=== PATIENT | female | born 1960 | race Caucasian/White ===

== ENCOUNTER → 2020-02-15 15:17 | Outpatient (BNVA) | payer OTHER, SELFPAY | PROVIDERS: Family Provider Nurse Practitioner; Visit Provider Nurse Practitioner | DX: Z12.31 Encounter for screening mammogram for malignant neoplasm of breast (principal); Z12.4 Encounter for screening for malignant neoplasm of cervix | CPT/HCPCS: 88175 ==

== ENCOUNTER → 2020-12-24 09:30 | Outpatient (BNVA) | payer SELFPAY | PROVIDERS: Family Provider Nurse Practitioner; Visit Provider Dermatology | DX: Z01.89 Encounter for other specified special examinations (principal); R20.2 Paresthesia of skin | CPT/HCPCS: 82607 ==

== ENCOUNTER 2021-05-12 08:59 | Outpatient (CLI) | payer OTHER, SELFPAY ==
--- NOTE | 2021-05-12 09:00 | MM_ITS ---
WS: [id number] BILATERAL SCREENING DIGITAL MAMMOGRAM WITH CAD HISTORY: Z12.31 - Encounter for screening mammogram for malignant neoplasm of breast COMPARISON: 01/23/2019 and 11/10/2017 Bilateral CC and MLO views submitted. Computer aided detection analyzed. Breast composition: The breasts are extremely dense, which lowers the sensitivity of mammography. No suspicious masses, microcalcifications or architectural distortion. Benign calcifications RIGHT breas [place]. MM/[place] [id number] IMPRESSION: BI-RADS: 2-Benign FOLLOW UP: 1 Year Follow-up
== END 2021-05-12 09:00 | disposition home or self-care (01) ==
LOC: RADSHAW 09:01
PROVIDERS: PCP Nurse Practitioner; Visit Provider Nurse Practitioner
DX: Z12.31 Encounter for screening mammogram for malignant neoplasm of breast (principal)
CPT/HCPCS: 77067

== ENCOUNTER → 2022-02-11 11:35 | Outpatient (BNVA) | payer OTHER, SELFPAY | PROVIDERS: PCP Nurse Practitioner; Visit Provider Nurse Practitioner | DX: N95.0 Postmenopausal bleeding (principal); R55 Syncope and collapse; Z12.4 Encounter for screening for malignant neoplasm of cervix; R13.10 Dysphagia, unspecified | CPT/HCPCS: 88175 ==

== ENCOUNTER 2022-02-26 07:24 | Outpatient (CLI) | payer OTHER, SELFPAY ==
--- NOTE | 2022-02-26 07:00 | USCV_ITS ---
Daniella Story Age: 61 Gender: F : 1960 Exam Date: 02/26/2022 07:39 Ordering Phys: Jose Miguel Thomas Technologist: CAMILLA Exam Location: [facility] [place] Indication: SYNCOPE Risk Factors: Previous Vascular Surgery: Right Brachial BP: / Left Brachial BP: / Right Left Velocity (cm/s) Spectral Plaque Velocity (cm/s) Spectral Plaque Syst/Diast Broadening Syst/Diast Broadening 119.10/27.60 Prox CCA 108.50/ 33.30 105.30/28.40 Mid CCA 127.30/ 41.00 87.10/ 23.20 Distal CCA 94.80 / 33.30 60.80/ 11.20 Prox ICA 88.00 / 12.80 69.10/ 30.80 Mid ICA 82.00 / 29.10 75.20/ 30.20 Distal ICA 60.80 / 19.80 76.00 ECA 108.50 0.63 ICA/CCA 0.69 Antegrade Vertebral Antegrade 43.50/ 14.00 cm/s 41.90/ 17.10 cm/s Tri Subclavian Tri 97.40 127.9 0 FINDINGS Comparison: none available. No significant elevation of systolic or diastolic velocities. Waveforms are normal. No significant amount of calcified plaque or intimal thickening identified. CONCLUSIONS Normal carotid doppler ultrasound. Dr. Olya Frances DO (Electronically Signed) Final Date: 26 Feb 2022 08:09 S
== END 2022-02-26 07:25 | disposition home or self-care (01) ==
LOC: RAD 07:24
PROVIDERS: PCP Nurse Practitioner; Visit Provider Nurse Practitioner
DX: R55 Syncope and collapse (principal)
CPT/HCPCS: 93880

== ENCOUNTER 2022-03-23 10:28 | Outpatient (CLI) | payer OTHER, SELFPAY ==
--- NOTE | 2022-03-23 10:45 | US_ITS ---
WS: [id number] TRANSABDOMINAL PELVIC AND TRANSVAGINAL PELVIC ULTRASOUND HISTORY: N95.0 - Postmenopausal bleeding COMPARISON: 04/24/2015 Uterus: 7.7 cm x 5.1 cm x 2.8 cm. Normal size anteverted uterus. Mildly heterogeneous myometrium but no fibroids are identified. Endometrium: 0.4 cm. Thin endometrium. Junctional zone is difficult to visualize. No mass is identifi ed. Right ovary: 2.1 cm x 1.9 cm x 1.2 cm. Small atrophic ovary as expected. No mass. Normal vascularity. Left ovary: 1.9 cm x 2.0 cm x 1.4 cm. Small atrophic ovary as expected. No mass. Normal vascularity. No free fluid. US/US pelvic with transvaginal IMPRESSION: 1. Thin endometrium. No mass identified. If postmenopausal bleeding persist re commend visualization with biopsy should be performed. 2. Heterogeneous uterus but no fibroid identified.
== END 2022-03-23 10:29 | disposition home or self-care (01) ==
PROVIDERS: PCP Nurse Practitioner; Visit Provider Nurse Practitioner
DX: N95.0 Postmenopausal bleeding (principal)
CPT/HCPCS: 76830; 76856

== ENCOUNTER 2022-03-31 08:31 | Outpatient (CLI) | payer OTHER, SELFPAY ==
--- NOTE | 2022-03-31 08:59 | FL_ITS ---
WS: [email or web address] FL barium swallow [id number] REASON FOR EXAM: DYSPHAGIA FLUOROSCOPY TIME: 2min [id number] # OF SPOT FILMS: 6 FINDINGS: The swallowing of barium was evaluated with the patient in the upright and SCOTT prone position. Examin ation was performed from the oropharynx through the gastroesophageal junction. There is mild impingement on the posterior cervical esophagus from anterior osteophytes C4-C5 and C5- C6. There is no stricture or evidence of a diverticulum in the region of the surgical clips in the ba se of the neck. (Lesion that was removed from the patient's neck was at the thoracic inlet right of m idline and was air filled and did not communicate with the esophagus.). Below the thoracic inlet there is moderate retention of barium in a nondilated esophagus. This was du e to loss of the normal peristaltic wave and mild tertiary contractions. With additional swallowing t he barium cleared from the esophagus. At the gastroesophageal junction there was no stricture and a very small sliding hiatal hernia with n o significant reflux. FL/FL barium swallow [id number] IMPRESSION: Esophageal dysmotility as above. No mechanical obstruction identified.
== END 2022-03-31 08:32 | disposition home or self-care (01) ==
PROVIDERS: PCP Nurse Practitioner; Visit Provider Specialist
DX: D15.2 Benign neoplasm of mediastinum (principal); R13.12 Dysphagia, oropharyngeal phase; R09.89 Other specified symptoms and signs involving the circulatory and respiratory systems
CPT/HCPCS: 74220

== ENCOUNTER 2022-04-14 12:09 | Outpatient (CLI) | payer OTHER, SELFPAY ==
--- NOTE | 2022-04-14 12:17 | CT_ITS ---
WS: [email or web address] CT CHEST TECHNIQUE: Contrast enhanced CT of the chest with coronal and sagittal reformatted images. CLINICAL INFORMATION: BENIGN NEOPLASM OF MEDIASTINUM COMPARISON: None. DLP: 472.[address] scans at [facility] use at least one of these dose optimization techniques: automated e xposure control; mA and/or kV adjustment per patient size (includes targeted exams where dose is matc hed to clinical indication); or iterative reconstruction. FINDINGS: Previously described RIGHT paraesophageal diverticulum has been ligated. No evidence of residual or r ecurrent diverticulum. Surgical clips in this area. Normal thyroid gland. Normal caliber thoracic aorta. No mediastinal or hilar lymphadenopathy. No axil paul lymphadenopathy. Adrenal glands are normal. Normal caliber upper abdominal aorta. Normal GE junc tion. Mild chronic emphysematous changes. No acute pulmonary infiltrates. No suspicious pulmonary parenchym al opacities. CT/CT chest w con* [id number] IMPRESSION: 1. Previously described paraesophageal diverticulum at the thoracic inlet has been surgically repaired compared to the prior examination. No evidence of resi dual or recurrent diverticulum. 2. Chest otherwise unremarkable.
--- NOTE | 2022-04-14 12:43 | CT_ITS ---
WS: [email or web address] CT NECK TECHNIQUE: Contrast-enhanced CT of the neck with coronal and sagittal reformatted images. CLINICAL INFORMATION: DYSPHAGIA, OROPHARYNGEAL PHASE COMPARISON: 2012 DLP: 191.[address] scans at [facility] use at least one of these dose optimization techniques: automated e xposure control; mA and/or kV adjustment per patient size (includes targeted exams where dose is matc hed to clinical indication); or iterative reconstruction. FINDINGS: Since the prior examination, there has been interval ligation of the previously described esophageal diverticulum. No evidence of residual or recurrent diverticulum today. Associated surgical clips in t his area. Parotid glands are normal. Submandibular glands are normal. Partially visualized intracranial content s are normal. Mild mucosal thickening RIGHT mastoid tip. Mastoid air cells are otherwise well aerated . Paranasal sinuses are well aerated. Normal posterior nasopharynx. Normal parapharyngeal fat. No evide nce of glottic or supraglottic mass. Subglottic airway is normal. Normal thyroid gland. Emphysematous changes in the lung apices. Beam hardening artifact at the tongue base due to dental artifact. Mild spondylitic changes cervical spine with disc space narrowing worse at C5-C6 and C6-C7. CT/CT neck w con* [id number] IMPRESSION: 1. Previously described esophageal diverticulum has been ligated since the cass or examination. No evidence of recurrent or residual diverticulum. Surgical cli ps in this area. 2. No evidence of supraglottic or glottic mass. Subglottic airway is patent. 3. No other significant changes compared to previous. 4. Normal salivary glands. 5. No cervical lymphadenopathy.
[2022-04-14] MEDS: iohexol 350 mg/mL 100 mL Btl IV ×2 (13:12→13:14)
[2022-04-14 15:39] LABS: Blood Urea Nitrogen 15 mg/dL (8-23); Glomerular Filtration Rate 85.4 mL/min (90-130)
== END 2022-04-14 12:10 | disposition home or self-care (01) ==
LOC: RAD 12:09
PROVIDERS: Otolaryngology; PCP Nurse Practitioner; Visit Provider Specialist
DX: D15.2 Benign neoplasm of mediastinum (principal)
CPT/HCPCS: 70491; 71260; 82565; 84520

== ENCOUNTER → 2022-06-30 09:00 | Outpatient (BNVA) | payer OTHER, SELFPAY | PROVIDERS: PCP Nurse Practitioner; Visit Provider Obstetrics & Gynecology | DX: N95.0 Postmenopausal bleeding (principal) | CPT/HCPCS: 88305 ==

== ENCOUNTER → 2022-09-15 12:47 | Outpatient (BNVA) | payer SELFPAY | PROVIDERS: PCP Nurse Practitioner; Visit Provider Dermatology | DX: Z01.89 Encounter for other specified special examinations (principal) ==

== ENCOUNTER 2023-03-29 13:16 | Outpatient (CLI) | payer OTHER, SELFPAY ==
--- NOTE | 2023-03-29 13:24 | MM_ITS ---
WS: [email or web address] VIEWS: MLO and CC views both breasts. 3D digital tomosynthesis is also included in this exam. Comparison made with prior exam of . Findings: There was no sign of mass, architectural distortion or suspicious calcification in either breast. Th e breasts are extremely dense which lowers the sensitivity of mammography MM/[place] [id number] Impression: BI-RADS: 2-Benign finding. FOLLOW-UP: 1 Year Follow-up This mammogram was also analyzed by the Computer Aided Detection System R2 Imag e [employer].
== END 2023-03-29 13:17 | disposition home or self-care (01) ==
PROVIDERS: PCP Nurse Practitioner; Visit Provider Nurse Practitioner
DX: Z12.31 Encounter for screening mammogram for malignant neoplasm of breast (principal)
CPT/HCPCS: 77063; 77067

== ENCOUNTER → 2023-11-26 12:36 | Outpatient (BNVA) | payer SELFPAY | PROVIDERS: PCP Nurse Practitioner; Visit Provider Nurse Practitioner | DX: Z13.6 Encounter for screening for cardiovascular disorders (principal) | CPT/HCPCS: 80061; 82947; 83036 ==

== ENCOUNTER 2024-04-18 11:00 | Outpatient (CLI) | payer OTHER, SELFPAY ==
--- NOTE | 2024-04-18 11:00 | MM_ITS ---
WS: [email or web address] Bilateral screening 3D tomosynthesis digital mammogram, 04/18/2024 Clinical Data: Z12.31 - Encounter for screening mammogram for malignant ... Comparison: 03/29/2023, 05/12/2021, 01/23/2019, 11/30/2017, 08/26/2016, 04/24/2015, 12/14/2013, 11/24/2012. , 04/16/2011, 03/10/2011, 08/13/2010, 07/24/2008. Findings: The breast parenchymal pattern shows extreme density. No spiculated masses or clustered calcification s are seen. There are no secondary signs of carcinoma. MM/[place] [id number] Impression: 1. Negative bilateral mammogram unchanged. 2. Recommend annual screening mammograms. BIRADS: 1-Negative FOLLOW UP: 1 Year Follow-up The CAD specifications checker was used.
== END 2024-04-18 11:04 | disposition home or self-care (01) ==
LOC: MOBLMAM 11:09
PROVIDERS: PCP Nurse Practitioner; Visit Provider Nurse Practitioner
DX: Z12.31 Encounter for screening mammogram for malignant neoplasm of breast (principal); R92.333 Mammographic heterogeneous density, bilateral breasts
CPT/HCPCS: 77063; 77067

== ENCOUNTER → 2025-03-07 16:52 | Outpatient (BNVA) | payer OTHER, SELFPAY | PROVIDERS: PCP Nurse Practitioner; Visit Provider Nurse Practitioner | DX: Z12.4 Encounter for screening for malignant neoplasm of cervix (principal) | CPT/HCPCS: 88175 ==

== ENCOUNTER 2025-04-25 09:04 | Outpatient (CLI) | payer OTHER, SELFPAY ==
--- NOTE | 2025-04-25 09:13 | CT_ITS ---
WS: [email or web address] CT NECK WITH CONTRAST HISTORY: DIVERTICULUM OF ESOPHAGUS, OTHER SPECIFIED SYMTOMS INVOLVING TECHNIQUE: Contiguous 2 mm axial images are performed through the neck with intravenous contrast. Sagittal and coronal reformats are also submitted. All CT scans at [facility] use at least one of these dose optimization techniques: automated exposure control; mA and/or kV adjustment per patient size (includes targeted exams where dose is matched to clinical indication); or iterative reconstruction. CONTRAST: CONTRAST: Omnipaque 350; 100 mL IV. DLP: 136.22 mGy.cm COMPARISON: 04/14/2022 and 11/11/2012 Previously described RIGHT neck diverticulum is no longer present and been surgically ligated. Mild narrowing of the larynx. No high-grade tracheal stenosis. No mass identified. No recurrent tracheal or esophageal diverticulum. No soft tissue mass or enhancement at the tongue base or along the tonsillar bed. Normal epiglottis. Torus tubarius and fossa of Rosenmuller and parapharyngeal fat are normal. No significant lymphadenopathy is identified. Thyroid gland and salivary glands are normally enhancing with no masses. Moderate degenerative disc disease at C5-6 and C6-7. Visualized portions of the skull base demonstrate no abnormalities. Orbits and globes are within normal limits. No soft tissue masses. Visualized paranasal sinuses and mastoid air cells are normal. Lung apices are clear. CT/CT neck w con* [id number] IMPRESSION: 1. No mass or abnormal enhancement along the larynx or hypopharynx. 2. No recurrent diverticulum. 3. There is mild narrowing of the larynx but no high-grade tracheal stenosis.
[2025-04-25 09:46] LABS: Blood Urea Nitrogen 23 mg/dL (8-23)
[2025-04-25] MEDS: iohexol 350 mg/mL 500 mL Btl (per mL) IV (09:51)
== END 2025-04-25 09:05 | disposition home or self-care (01) ==
LOC: RAD 09:07
PROVIDERS: PCP Nurse Practitioner; Visit Provider Nurse Practitioner Family
DX: R09.89 Other specified symptoms and signs involving the circulatory and respiratory systems (principal); Z87.19 Personal history of other diseases of the digestive system
CPT/HCPCS: 70491; 82565; 84520

== ENCOUNTER 2025-05-24 09:19 | Outpatient (CLI) | payer OTHER, SELFPAY ==
--- NOTE | 2025-05-24 09:20 | MM_ITS ---
WS: [email or web address] BILATERAL SCREENING DIGITAL TOMOSYNTHESIS MAMMOGRAM WITH CAD HISTORY: Z12.31 - Encounter for screening mammogram for malignant ... COMPARISON: 04/18/2024, 05/12/2021 and 03/29/2023 Bilateral CC and MLO views with tomosynthesis and synthetic mammography submitted. Computer aided detection analyzed. Breast composition: The breasts are extremely dense, which lowers the sensitivity of mammography. No suspicious masses, microcalcifications or architectural distortion. MM/MM scr tomosynthesis [id number] IMPRESSION: BI-RADS: 1 - Negative FOLLOW UP: 1 Year Follow-up
== END 2025-05-24 09:20 | disposition home or self-care (01) ==
PROVIDERS: PCP Nurse Practitioner; Visit Provider Nurse Practitioner
DX: Z12.31 Encounter for screening mammogram for malignant neoplasm of breast (principal); R92.313 Mammographic fatty tissue density, bilateral breasts
CPT/HCPCS: 77063; 77067